=== PATIENT | female | born 1990 | race African-American/Black ===

== ENCOUNTER 2016-12-22 13:37 | Emergency (ER) | payer SELFPAY ==
[2016-12-22] MEDS ORDERED: SODIUM CHLORIDE 0.9% 1,000 ML IV ONE ×2 (16:09→16:15)
[2016-12-22] MEDS ORDERED: ONDANSETRON 4 MG/2 ML VIAL IVP STA (16:10)
[2016-12-22] MEDS ORDERED: FAMOTIDINE 20 MG/50 ML 50 ML IV ONE ×2 (16:10→16:15)
[2016-12-22] MEDS ORDERED: ONDANSETRON 4 MG/2 ML VIAL ONE (16:15)
[2016-12-22] MEDS ORDERED: SUCRALFATE 1 GM/10 ML UDC PO STA (19:52)
[2016-12-22] MEDS ORDERED: MAG HYDROX/AL HYDROX/SIMETH 30 ML UDC PO STA (19:52)
[2016-12-22] MEDS ORDERED: LIDOCAINE VISCOUS 2% 15 ML UDC MM STA (19:52)
[2016-12-22] MEDS ORDERED: MAG HYDROX/AL HYDROX/SIMETH 30 ML UDC ONE (19:55)
[2016-12-22] MEDS ORDERED: LIDOCAINE VISCOUS 2% 15 ML UDC MM ONE (19:55)
[2016-12-22] MEDS ORDERED: SUCRALFATE 1 GM/10 ML UDC ONE (19:55)
== END 2016-12-22 20:15 | disposition home or self-care (01) ==
DX: K29.00 Acute gastritis without bleeding (principal); Z90.49 Acquired absence of other specified parts of digestive tract
CPT/HCPCS: 36415; 80076; 81003; 81025; 83690; 96365; 96375; 99283; 99284; A9270

== ENCOUNTER 2017-01-20 13:44 | Emergency (ER) | payer SELFPAY ==
[2017-01-20] MEDS ORDERED: SODIUM CHLORIDE 0.9% 1,000 ML IV ONE (13:58)
[2017-01-20] MEDS ORDERED: LACTATED RINGERS 1,000 ML IV STA (13:58)
[2017-01-20] MEDS ORDERED: ONDANSETRON 4 MG/2 ML VIAL IVP STA (13:58)
[2017-01-20] MEDS ORDERED: ONDANSETRON 4 MG/2 ML VIAL ONE (14:28)
== END 2017-01-20 15:41 | disposition home or self-care (01) ==
DX: F10.129 Alcohol abuse with intoxication, unspecified (principal); Z87.19 Personal history of other diseases of the digestive system